=== PATIENT | female | born 1980 | race Two or more races ===

== ENCOUNTER 2017-10-21 23:50 | Emergency (ER) | payer SELFPAY ==
[2017-10-22] VITALS: BP 122/75; PULSE 75; RESP 18; TEMP 98; O2SAT 100
--- NOTE | 2017-10-22 04:28 | ED PDOC ---
Upper Extremity Pain/Injury Time Seen by Provider: 10/22/17 00:39 Chief Complaint (Nursing): Abnormal Skin Integrity Chief Complaint (Provider): LACERATION History Per: Patient History/Exam Limitations: no limitations Onset/Duration Of Symptoms: Mins (30) Current Symptoms Are (Timing): Still Present Past Medical History Reviewed: Historical Data, Nursing Documentation, Vital Signs Vital Signs: Last Vital Signs Temp 98.0 F 10/21/17 23:58 Pulse 75 10/21/17 23:58 Resp 18 10/21/17 23:58 BP 122/75 10/21/17 23:58 Pulse Ox 100 10/21/17 23:58 - Family History Family History: States: Unknown Family Hx - Allergies Allergies/Adverse Reactions: Allergies Allergy/AdvReac Type Severity Reaction Status Date / Time No Known Allergies Allergy Verified 10/21/17 23:58 Review of Systems ROS Statement: Except As Marked, All Systems Reviewed And Found Negative Skin: Positive for: Other (LACERATION) Physical Exam - Reviewed Nursing Documentation Reviewed: Yes Vital Signs Reviewed: Yes - Physical Exam Appears: Positive for: Well, Non-toxic, No Acute Distress Head Exam: Positive for: ATRAUMATIC, NORMAL INSPECTION, NORMOCEPHALIC Skin: Positive for: Normal Color (SMALL SUPERFICIAL LACERATION TO SECOND DIGIT OF LEFT HAND AT THE DISTAL END; BLEEDING IS UNDER CONTROL AND PT IS HEMODYNAMICALY STABLE;) - ECG O2 Sat by Pulse Oximetry: 100 Medical Decision Making Medical Decision Making: After PE, pt indicates that she will leave because there is no longer any bleeding; pt offered tdap and abx and pt refused both, indicating that she received a tdap two years ago and would not take the abx anyway pt provided with bandaids as she left the room Disposition - Clinical Impression Clinical Impression: Laceration - Patient ED Disposition Is Patient to be Admitted: No - Disposition Disposition: Left W/O Treatment Disposition Time: 00:55 Condition: STABLE Forms: [facility] (Al[place]ian)
== END 2017-10-22 01:00 | disposition left against medical advice (07) ==
LOC: H.ER 23:50
DX: S61.211A Laceration without foreign body of left index finger without damage to nail, initial encounter (principal); X58.XXXA Exposure to other specified factors, initial encounter